=== PATIENT | male | born 1960 | race Hispanic/Latino ===

== ENCOUNTER 2024-08-09 06:01 | Day surgery (SDC) | payer BC ==
[2024-08-06 11:58] LABS: Absolute Lymphocytes (CBC) 1.1 K/uL (0.7-4.9); Absolute Monocytes 0.4 K/uL (0.1-1.3); Absolute Neutrophil 3.4 K/uL (1.8-8.0); Basophils % 0.4 % (0-1.3); Eosinophils % 0.6 % (0-4.4); Hematocrit 41.8 % (39.6-49.0); Lymphocytes % 22.7 % (15.3-44.8); MCH 30.8 pg (27.0-35.0); MCHC 33.4 g/dL (32.0-36.0); MCV 92.2 fL (80-100); MPV 7.5 fL (7.6-11.3); Neutrophils % 68.3 % (41.7-73.7); Platelets 211 thou/uL (152-406); RBC Red Blood Cell Count 4.54 M/uL (4.33-5.43)
[2024-08-06 12:05] LABS: Anion Gap 6.5 mEq/L (5.0-15.0); Potassium 4.5 mEq/L (3.5-5.1)
[2024-08-09] MEDS ORDERED: dexAMETHasone 10 MG/ML VIAL ONE ×2 (06:17→06:45)
[2024-08-09] MEDS ORDERED: Ringers Lactate 1,000 ML IV ONE (06:18)
[2024-08-09] MEDS ORDERED: MIDAZOLAM HCL 2 MG/2 ML INJ ONE (06:18)
[2024-08-09] MEDS ORDERED: FENTANYL CITR 100 MCG/2 ML ONE (06:18)
[2024-08-09] MEDS ORDERED: EPINEPHRINE 1 MG/ML VIAL ONE (06:18)
[2024-08-09] MEDS ORDERED: LIDOCAINE 1% MPF 5 ML VIAL ONE (06:18)
[2024-08-09] MEDS ORDERED: ROPLVACAINE HCL 20 ML ONE (06:19)
[2024-08-09] MEDS: CEFAZOLIN SODIUM 1 GM/VIAL ONE (06:43)
[2024-08-09] MEDS ORDERED: propofoL 200 MG/20 ML VIAL IV ONE (06:45)
[2024-08-09] MEDS ORDERED: LIDOCAINE 2% MPF 5 ML VIAL ONE (06:45)
[2024-08-09] MEDS ORDERED: KETOROLAC 30 MG/ML INJ ONE (06:45)
[2024-08-09] MEDS ORDERED: ONDANSETRON 4 MG/2 ML VIAL ONE (06:45)
[2024-08-09] MEDS ORDERED: LIDOCAINE 1% 20 ML MDV ONE (06:46)
[2024-08-09 06:55] VITALS: O2SAT 100
[2024-08-09] MEDS ORDERED: GLYCOPYRROLATE 0.2 MG/ML SYR ONE (07:57)
[2024-08-09] MEDS ORDERED: CEFAZOLIN SODIUM 1 GM/VIAL ONE (08:12)
[2024-08-09] MEDS ORDERED: NS 0.9% VIAL 20 ML ONE (08:12)
[2024-08-09 09:26] VITALS: BP 116/81; TEMP 97
--- NOTE | 2024-08-09 12:05 | RAD REPORT ---
EXAM: Foot Right 2 View HISTORY: [facility] COMPARISON: None FINDINGS: A total of 18 images were sent to PACS, during a fluoroscopically guided deformity open red uction and internal fixation. No radiologist was present for the duration of the procedure. No interpretation of the saved images will be provided. Total fluoroscopy time: 0.5 minutes. IMPRESSION: Documentation of fluoroscopy use as above.
--- NOTE | 2024-08-09 12:59 | EKG ---
Test Date: 2024-08-06 Test Time: 11:41:32 Physical Design Engineer: LETY MEASUREMENT RESULTS: Intervals: Rate: 55 TN: 164 QRSD: 112 QT: 402 QTc: 384 [place]: P: 83 TN: 164 QRS: 79 T: 76 INTERPRETIVE STATEMENTS: Sinus bradycardia Voltage criteria for left ventricular hypertrophy Abnormal ECG No previous ECG available for comparison Electronically Signed On 08-09-24 12:50:20 CDT by Leopoldo Kang
== END 2024-08-09 10:05 | disposition home or self-care (01) ==
LOC: OR 06:01
PROVIDERS: ATTEND Podiatrist Foot & Ankle Surgery
PROC: 0QSQ34Z Reposition Right Toe Phalanx with Internal Fixation Device, Percutaneous Approach (ICD-10-PCS; principal; 2024-08-09 07:30)
DX: S92.404D Nondisplaced unspecified fracture of right great toe, subsequent encounter for fracture with routine healing (principal); I10 Essential (primary) hypertension
CPT/HCPCS: 28505; 93005; 85025; 80048; 36415; 73620; A4216; J2704; J2001 ×2; J2250; J3010; J1100 ×2; J0171; J2405; J7120; J0690 ×2